=== PATIENT | male | born 2000 | race Caucasian/White ===

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

== ENCOUNTER → 2019-08-17 14:25 | Emergency (ER) | payer SELFPAY | END | disposition home or self-care (01) | LOC: OHCORT 14:25 | DX: Z02.5 Encounter for examination for participation in sport (principal) ==